=== PATIENT | female | born 1955 | race African-American/Black ===

== ENCOUNTER 2018-03-01 12:03 | Inpatient (IN) ==
--- NOTE | 2018-03-01 13:10 | Diag Imaging Result Doc PS360 ---
EXAM: CHEST-2 VIEWS 03/01/2018 HISTORY: SOB WHEEZING AND BLE EDEMA; SUSPECT NEW CHF TECHNIQUE: PA and lateral chest COMMENT: There is cardiomegaly. There is interstitial and alveolar opacity bilaterally consistent with pulmonary edema. There are no previous studies. IMPRESSION: Cardiomegaly and pulmonary edema. Electronically signed by Nirav Bradford 03/01/2018 1:07 PM
[2018-03-01 14:41] LABS: BASO# 0.01 X1000 (0.0-0.2); BASO% 0.1 % (0.0-0.8); EOS# 0.05 X1000 (0.0-0.7); EOS% 0.7 % (0.0-10.0); HEMATOCRIT 30.6 % (37.0-47.0); HEMOGLOBIN 8.6 g/dL (12.0-16.0); IMM GRAN# 0.05 X1000 (0.0-0.04); IMM GRAN% 0.7 % (0.0-0.5); LYMPH# 1.84 X1000 (1.2-3.4); LYMPH% 25.3 % (20.5-51.1); MCH 25.7 PG (27-31); MCHC 28.1 g/dL (33-37); MCV 91.3 FL (81-99); MONO# 0.71 X1000 (0.11-0.59); MONO% 9.8 % (1.7-9.3); MPV 10.4 FL (7.4-10.4); NEUT# 4.61 X1000 (1.4-6.5); NEUT% 63.4 % (42.2-75.2); PLT 352 X1000 (130-400); RBC 3.35 XMIL (4.2-5.4); RDW 15.3 % (11.5-14.5); WBC 7.27 X1000 (4.8-10.8)
[2018-03-01 15:02] LABS: AGAP 4; ALB/GLOB RATIO 1.4; ALKALINE PHOSPHATASE 67 U/L (32-104); BUN 17 mg/dL (8-22); CALCIUM 9.3 mg/dL (8.8-10.2); CHLORIDE 101 mmol/L (98-107); COSMO 287; CREATININE 0.6 mg/dL (0.5-0.9); ESTIMATED GFR > 60; GLUCOSE 108 mg/dL (70-104); GOT 85 U/L (10-30); GPT 190 U/L (10-36); MAGNESIUM 1.8 mg/dL (1.5-2.7); POTASSIUM 4.4 mmol/L (3.5-5.1); SODIUM 143 mmol/L (136-145); TCO2 38 mmol/L (25-35); TOTAL BILIRUBIN 0.38 mg/dL (0.20-1.00); TOTAL PROTEIN 6.8 g/dL (6.3-8.3)
[2018-03-01] MEDS ORDERED: LASIX IV ONE ×3 (15:15→21:00)
[2018-03-01 15:16] LABS: CK PROFILE 236 U/L (24-173)
--- NOTE | 2018-03-01 15:22 | PROVIDER DOCUMENTATION ---
This chart was entered by Nery Callaway Scribe, acting as scribe for Pee Tabor MD. HPI-Respiratory General - General Chief Complaint: Edema Stated Complaint: leg swelling Time Seen by Provider: 03/01/18 12:46 Source: patient Allergies/Adverse Reactions: Patient Allergies Allergy/AdvReac Type Severity Reaction Status Date / Time No Known Allergies Allergy Verified 03/01/18 12:40 Home Medications: Home Medication List Medication Instructions Recorded Confirmed Last Taken Type Metformin [Glucophage] 500 mg PO DAILY 03/01/18 03/01/18 03/01/18 History Naproxen 500 mg PO DAILY 03/01/18 03/01/18 02/28/18 History Nifedipine 10 mg PO DAILY 03/01/18 03/01/18 03/01/18 History Sitagliptin [Januvia] 50 mg PO DAILY 03/01/18 03/01/18 02/28/18 History - History of Present Illness-Resp Nature of Presenting Problem: Patient is a 63 year old female who presents to the ED via EMS with shortness of breath. Patient states shortness of breath has been present for 2 weeks. Patient does not report chest pain. Quality of Pain: reports: tightness Severity in ED: reports: mild Onset/Duration: reports: other (2 weeks) Timing: reports: still present, getting worse Cough Quality/Degree: reports: no cough Current Respiratory Medication Therapy: Initiated see nurses note Modifying Factors: improves with: exertion (worse), lying down (worse) Associated Symptoms: reports: shortness of breath Similar Symptoms Previously?: Yes (present for 2 weeks) Recently seen or treated by another doctor?: No Review of Systems - Adult - REVIEW OF SYSTEMS - ADULT Constitutional: reports: no symptoms reported Eyes: reports: no symptoms reported Ears, Nose, Mouth & Throat: reports: no symptoms reported Cardiovascular: reports: no symptoms reported Respiratory: reports: shortness of breath. denies: cough, wheezing Gastrointestinal: reports: no symptoms reported Genitourinary: reports: no symptoms reported Musculoskeletal: reports: no symptoms reported Integumentary: reports: no symptoms reported Neurological: reports: no symptoms reported Psychiatric: reports: no symptoms reported Endocrine: reports: no symptoms reported Hematologic/Lymphatic: reports: no symptoms reported Allergic/Immunologic: reports: no symptoms reported All Other Systems: Reviewed and Negative Past History - Adult - PAST MEDICAL HISTORY-ADULT Review of Records: reports: Nursing Assessment Review, Medications Reviewed, Social history reviewed & non-contributory. Major Childhood Illnesses: reports: denies history Cardiovascular: reports: HTN Respiratory: reports: denies history Gastrointestinal: reports: denies history Obstetrical/Gynecological: reports: denies history Genitourinary: reports: denies history Musculoskeletal: reports: denies history Neurological: reports: denies history Psychiatric: reports: denies history Endocrine/Immune: reports: Diabetes Other Conditions: reports: denies history - PRIOR SURGERIES/PROCEDURES Surgical/Procedure History: reports: reviewed, not pertinent, , hernia repair - IMMUNIZATION STATUS Childhood Immunizations: See Nurse Assessment Flu Vaccine: See Nurse Assessment - FAMILY HISTORY Family History: reviewed, not pertinent - SOCIAL HISTORY Smoking: denies Substance Use: denies Physical Exam-General - PHYSICAL EXAM-ADULT Initial Vital Signs Reviewed: Yes - CONSTITUTIONAL General Appearance: alert, no apparent distress - HEAD, EARS, NOSE, MOUTH & THROAT HENMT: normal ENT inspection - RESPIRATORY Respiratory: wheezing (bilateral cardiac wheezing), other (cardiac asthma) - MUSCULOSKELETAL Extremity: non-tender, other (2 + pitting edema to bilateral lower extremities) - SKIN Integumentary: normal color, normal turgor, warm/dry - NEUROLOGIC Neurologic: grossly normal, no motor/sensory deficits - PSYCHIATRIC Psych/Mental Status: normal mood/affect, oriented x 3 Progress - PLAN OF CARE/RESULTS Progress/Plan/Lab Results: Vital Signs - 8 hr 03/01/18 12:14 03/01/18 12:33 03/01/18 12:40 Temperature 98.7 F Pulse Rate 99 H 97 H 94 H Respiratory Rate 20 31 H 28 H Blood Pressure 180/118 153/96 O2 Sat by Pulse Oximetry 97 95 94 L 03/01/18 12:50 03/01/18 13:00 Temperature Pulse Rate 105 H 97 H Respiratory Rate 26 H 15 Blood Pressure O2 Sat by Pulse Oximetry 97 96 Laboratory Results - last 24 hr 03/01/18 03/01/18 03/01/18 14:26 14:26 14:26 WBC 7.27 RBC 3.35 L Hgb 8.6 L Hct 30.6 L MCV 91.3 MCH 25.7 L MCHC 28.1 L RDW Std Deviation 15.3 H Plt Count 352 MPV 10.4 Immature Gran % (Auto) 0.7 H Neut % (Auto) 63.4 Lymph % (Auto) 25.3 [place] % (Auto) 9.8 H Eos % (Auto) 0.7 Baso % (Auto) 0.1 Immature Gran # (Auto) 0.05 H Neut # (Auto) 4.61 Lymph # (Auto) 1.84 [place] # (Auto) 0.71 H Eos # (Auto) 0.05 Baso # (Auto) 0.01 PTT (Actin FS) Sodium 143 Potassium 4.4 Chloride 101 Carbon Dioxide 38 H Anion Gap 4 BUN 17 Creatinine 0.6 Estimated GFR/1.73 m2 > 60 BUN/Creatinine Ratio 28 Glucose 108 H Calculated Osmolality 287 Calcium 9.3 Magnesium 1.8 Total Bilirubin 0.38 AST 85 H ALT 190 H Alkaline Phosphatase 67 Creatine Kinase 236 H Troponin T [id number]-[id number] Pept 1482 H Total Protein 6.8 Albumin 4.0 Globulin 2.8 Albumin/Globulin Ratio 1.4 PTH Intact 03/01/18 03/01/18 03/01/18 14:26 14:26 14:26 WBC RBC Hgb Hct MCV MCH MCHC RDW Std Deviation Plt Count MPV Immature Gran % (Auto) Neut % (Auto) Lymph % (Auto) [place] % (Auto) Eos % (Auto) Baso % (Auto) Immature Gran # (Auto) Neut # (Auto) Lymph # (Auto) [place] # (Auto) Eos # (Auto) Baso # (Auto) PTT (Actin FS) 24.6 Sodium Potassium Chloride Carbon Dioxide Anion Gap BUN Creatinine Estimated GFR/1.73 m2 BUN/Creatinine Ratio Glucose Calculated Osmolality Calcium Magnesium Total Bilirubin AST ALT Alkaline Phosphatase Creatine Kinase Troponin T < 0.010 Lge-Z-Dzpcgcgkiet Pept Total Protein Albumin Globulin Albumin/Globulin Ratio PTH Intact 60 Orders Category Date Time Status cxr [CHEST-2 VIEWS] [RAD] Stat Exams 03/01/18 12:53 Completed CBC WITH ELECTRONIC DIFF [HEME] Stat Lab 03/01/18 14:26 Completed CK PROFILE [SP CHEM] Stat Lab 03/01/18 14:26 Results COMPREHENSIVE METABOLIC PANEL [CHEM] Stat Lab 03/01/18 14:26 Results MAGNESIUM [CHEM] Stat Lab 03/01/18 14:26 Results PRO B-NATRIURETIC PEPTIDE Stat Lab 03/01/18 14:26 Completed PTH INTACT [CHEM] Stat Lab 03/01/18 14:26 Completed PTT [COAG] Stat Lab 03/01/18 14:26 Completed TROPONIN T Stat Lab 03/01/18 14:26 Completed TSH Stat Lab 03/01/18 15:[address] W/POSS RFLX CULT [URINALYSIS] Stat Lab 03/01/18 12:53 Uncollected Furosemide [Lasix] Med 03/01/18 15:15 Discontinued 40 mg IV NOW ONE Furosemide [Lasix] Med 03/01/18 15:16 Discontinued 60 mg IV NOW ONE ECHO COMPL W/Contrast Definity Routine Ther 03/01/18 15:19 Ordered EKG [EKG] Stat Ther 03/01/18 12:54 Ordered Result Diagrams: 03/01/18 14:26 03/01/18 14:26 - REASSESSMENT Reassessment #1 Time Reassessed: 15:17 Status: other (NEW CHF; PENDING HOSPITALIST TO RETURN CALL.) Reassessment #2 Time Reassessed: 15:21 Status: other (APPRECIATE HOSPITALSIT ASSISTANC.E) - XRAY 1 XRAY Study: Chest Impression: See EMR Report ( EXAM: CHEST-2 VIEWS 03/01/2018 HISTORY: SOB WHEEZING AND BLE EDEMA; SUSPECT NEW CHF TECHNIQUE: PA and lateral chest COMMENT: There is cardiomegaly. There is interstitial and alveolar opacity bilaterally consistent with pulmonary edema. There are no previous studies. IMPRESSION: Cardiomegaly and pulmonary edema. Electronically signed by Nirav Bradford 03/01/2018 1:07 PM 03/01/18 [id number] Interpreting Physician: Nirav Bradford MD Dictated Date/Time: 03/01/18 1308 cc: Pee Tabor MD;) - CONSULTS/PCP/HOSPITALIST Notification #1 *Consult/PCP/Hospitalist*: KARLIE Daniels for Hospitalist Time Discussed: 15:18 Reason/Comments: Dr. Tabor consulted with Frances about patient. Consult Disposition: Will see in ED, Admit Departure - Departure Date of Disposition Decision: 03/01/18 Time of Disposition Decision: 15:21 DIAGNOSIS: CHF exacerbation Disposition: ADMITTED INPATIENT 09 Certified Medical Emergency: Emergent Condition: Stable Referrals and Follow-Ups: None,PCP [Primary Care Provider] - - Critical Care Note This patient required my direct & personal management of CC.: No Attestation - Physician/ KOSTAS Attestation Patient care was provided by Advanced Practice Provider:: No The physician spent face to face time with patient:: Yes Advanced Practice Provider documentation review:: Supervising physician onsite and consulted in the evaluation and care of this patient. The physician did have a face to face encounter with the patient. This chart was documented by the indicated scribe, (Nery Callaway Scribe) and accurately reflects the services I performed and decisions made by me, Pee Tabor MD, as attested by the provider's signature.
[2018-03-01 15:30] LABS: CK INDEX 2.6 (0.0-2.5); CK-MB 6.05 ng/mL (0.0-5.0)
[2018-03-01 16:12] LABS: URINE SOURCE CLEAN CATCH
[2018-03-01 16:34] LABS: BILIRUBIN URINE NEGATIVE (NEGATIVE); BLOOD URINE NEGATIVE (NEGATIVE); COLOR STRAW; GLUCOSE URINE NEGATIVE (NEGATIVE); KETONE URINE NEGATIVE (NEGATIVE); LEUKOCYTES URINE NEGATIVE (NEGATIVE); NITRITE URINE NEGATIVE (NEGATIVE); PH URINE 5.5; PROTEIN URINE NEGATIVE (NEGATIVE); SP GRAVITY URINE 1.004; TURBIDITY URINE CLEAR (CLEAR); UROBILINOGEN URINE NORMAL (NORMAL)
[2018-03-01 16:35] LABS: UR EPITHELIAL CELLS <10 /HPF (<10); URINE BACTERIA NEGATIVE /HPF; URINE RBC <10 /HPF (<10); URINE WBC <10 /HPF (<10)
[2018-03-01 20:56] LABS: AGAP 9; BUN 13 mg/dL (8-22); CHLORIDE 96 mmol/L (98-107); COSMO 293; CREATININE 0.6 mg/dL (0.5-0.9); ESTIMATED GFR > 60; GLUCOSE 170 mg/dL (70-104); MAGNESIUM 1.6 mg/dL (1.5-2.7); PHOSPHORUS 4.3 mg/dL (2.7-4.5); POTASSIUM 3.8 mmol/L (3.5-5.1); SODIUM 145 mmol/L (136-145); TCO2 40 mmol/L (25-35)
[2018-03-01 21:05] LABS: T4 4.75 ug/dL (4.60-12.00); TSH 1.43 uIUmL (0.27-4.20)
[2018-03-01 21:12] LABS: CK-MB 7.27 ng/mL (0.0-5.0)
[2018-03-01 22:27] LABS: URINE SOURCE CATH
[2018-03-01 22:53] LABS: BILIRUBIN URINE NEGATIVE (NEGATIVE); BLOOD URINE NEGATIVE (NEGATIVE); COLOR STRAW; GLUCOSE URINE NEGATIVE (NEGATIVE); KETONE URINE NEGATIVE (NEGATIVE); LEUKOCYTES URINE NEGATIVE (NEGATIVE); NITRITE URINE NEGATIVE (NEGATIVE); PROTEIN URINE NEGATIVE (NEGATIVE); TURBIDITY URINE CLEAR (CLEAR); UR EPITHELIAL CELLS <10 /HPF (<10); URINE BACTERIA NEGATIVE /HPF; URINE RBC <10 /HPF (<10); URINE WBC <10 /HPF (<10); UROBILINOGEN URINE NORMAL (NORMAL)
[2018-03-01] MEDS: COLACE PO SCH (23:25)
[2018-03-01] MEDS: LOPRESSOR PO SCH (23:32)
[2018-03-02 03:53] LABS: HEMOGLOBIN A1C 6.2 % (4.8-6.0)
[2018-03-02 04:18] LABS: ALB/GLOB RATIO 1.5; ALBUMIN 4.1 g/dL (3.5-5.0); DIRECT BILIRUBIN 0.1 mg/dL (0.00-0.20); TOTAL BILIRUBIN 0.41 mg/dL (0.20-1.00); TOTAL PROTEIN 6.9 g/dL (6.3-8.3)
[2018-03-02 04:28] LABS: FERRITIN 17 ng/mL (13-150)
[2018-03-02 04:41] LABS: CK INDEX 3.5 (0.0-2.5); CK-MB 6.9 ng/mL (0.0-5.0)
--- NOTE | 2018-03-02 05:18 | HISTORY AND PHYSICAL ---
PRIMARY CARE PHYSICIAN: None. CHIEF COMPLAINT: Bilateral lower extremity edema and shortness of breath. HISTORY OF PRESENT ILLNESS: Ms. Rae is a pleasant 63-year-old female who carries a past medical history of essential hypertension, diabetes mellitus type 2, hyperlipidemia, occasional constipation, morbid obesity, and gastric ulcers secondary to NSAID use. She states for the past 2 weeks she has had increasing shortness of breath. She can only walk a few feet before she has to stop to rest to catch her breath. She only sleeps on 1 pillow at night. She noticed her legs started swelling this morning and having increased shortness of breath. She does take naproxen 1 to 2 times per week for joint pain. She stopped drinking sodas 6 months ago. She does the eat canned tuna and sardines in can but adds no extra salt to her food. She denies any abdominal fullness. She has noted a dry cough that is nonproductive, but sometimes she is able to get up some white frothy sputum. She denies any chest pain, palpitations, headache, fever, chills, nausea, vomiting, diarrhea. She did state when she got up to use the bathroom with the assistance of her that she felt dizzy. Her O2 saturations dropped into the 80s. She was placed back in the bed. It did take her a few minutes for her O2 to come back up into the 90s, so she will be admitted for acute CHF exacerbation and placed on CIC with a Mckeon. She was given a one-time dose of Lasix 60 mg in the ED. Chest x-ray showed cardiomegaly and pulmonary edema. PAST MEDICAL HISTORY: 1. Hypertension. 2. Diabetes mellitus type 2, orally controlled. 3. Hyperlipidemia. 4. Constipation occasionally. 5. Morbid obesity. 6. Gastric ulcer secondary to NSAID use. SURGICAL HISTORY: 1. Two C sections. 2. Hernia repair. 3. Hysterectomy. 4. Right ankle. FAMILY HISTORY: No coronary artery disease. She had a mother with rectal cancer, still living and in remission. Father from diabetes mellitus at the age of 63. SOCIAL HISTORY: Originally from [place]. They reside here in [place] with her . She does have 2 children. One daughter is an REVIEW ASSISTANT in [place]. Denies any alcohol, tobacco, or illicit drug use. ALLERGIES: No known drug allergies. HOME MEDICATIONS: 1. Metformin 500 mg p.o. daily. 2. Naproxen 500 mg p.o. daily p.r.n. per patient. 3. Nifedipine 10 mg p.o. daily. 4. Januvia 50 mg p.o. daily. PHYSICAL EXAM: VITAL SIGNS: Temperature is 98.7 degrees, heart rate 96, respirations 23, blood pressure 170/118, and O2 saturation anywhere from 88 to 97 percent on 2 L nasal cannula. GENERAL: Ms. Rae is a pleasant 63-year-old female who is sitting up on the stretcher. She just returned to the bed from using the restroom. She is short of breath but in no acute distress. HEENT: Atraumatic, normocephalic. APRIL. NECK: Supple. Trachea midline. CV: S1, S2 appreciated. No murmurs, gallops, or rubs noted. No JVD. RESPIRATORY: Lung sounds diminished bilaterally secondary to body habitus. I did not appreciate any rales, rhonchi, or wheezes. GI: Obese, soft, nontender, nondistended. Positive bowel sounds 4 quadrants. Bilateral lower extremity 2 to 3+ pitting edema just above the ankles. SKIN: Warm, dry and intact. EXTREMITIES: No clubbing or cyanosis noted. NEURO: Patient is alert and oriented x4. Follows commands. Moves all extremities. No focal deficits noted. DIAGNOSTIC DATA: Chest x-ray cardiomegaly and pulmonary edema. Echocardiogram pending. LABORATORY DATA: White count 7, hemoglobin 8 and 30, platelet count is 352,000. Sodium 143, potassium 4.4, BUN 17, creatinine 0.6. Blood glucose is 108. AST 85, ALT 190. CK 236, CK 2.6, CK-MB 6.05. Troponin less than 0.010. ProBNP was 14 82. Urinalysis was negative. ASSESSMENT AND PLAN: 1. Acute congestive heart failure exacerbation. Chest x-ray shows pulmonary edema and cardiomegaly. The patient states she has never been diagnosed with congestive heart failure. We will admit her to CIC. Continue with diuresis. Will initiate her on metoprolol low dose b.i.d. Strict I's and O's, daily weights. Check an echocardiogram. Consult Cardiology. Recheck a proBNP in the a.m. Continue to trend her cardiac enzymes. Recheck a chest x-ray in the a.m. 2. Transaminitis. We will check a right upper quadrant ultrasound in the a.m. Check her hepatic function in the a.m. as well as a hepatitis profile, possibly due to congestion from her heart failure exacerbation. We will continue to monitor. 3. Anemia. Unsure if it is from chronic disease. We will do an anemia workup. 4. Diabetes mellitus type 2. Will place her on sliding scale and pattern blood sugars. Check a hemoglobin A1c in the a.m. 5. Morbid obesity. We will need to educate the patient on diet and exercise. She does eat a lot of canned foods, however, she does not add any extra salt and she quit drinking soda 6 months ago. Will do a dietary consult. 6. Gastric ulcer history secondary to NSAID use. We did educate her that naproxen is an NSAID as well as not using it with her heart failure. 7. Occasional constipation. We will go ahead and start her on a stool softener seeing as how we are going to be giving her diuretics. 8. Further recommendation to follow physician evaluation, laboratory and diagnostic data. Dictated by KARLIE Murcia for Edwin Blancas MD cc: Edwin Blancas MD
[2018-03-02] MEDS: LASIX IV SCH ×3 (06:00→20:06)
--- NOTE | 2018-03-02 07:22 | Diag Imaging Result Doc PS360 ---
EXAM: CHEST-PORTABLE 03/02/2018 HISTORY: follow up CHF TECHNIQUE: AP portable upright at 0557 COMMENT: There is cardiomegaly. There is increased pulmonary vascularity. There is apparent interstitial pulmonary edema. Despite the less optimal inspiration this has probably improved somewhat since 03/01/2018. IMPRESSION: Improved pulmonary edema. Electronically signed by Nirav Bradford 03/02/2018 7:20 AM
--- NOTE | 2018-03-02 08:05 | EKG Report ---
Test Performed on : 03/02/2018 07:06:22 AM Test Reason : Heart Failure Admission Blood Pressure : / mmHG Vent. Rate : 077 BPM Atrial Rate : 077 BPM P-R Int : 146 ms QRS Dur : 096 ms QT Int : 426 ms P-R-T Axes : 062 054 100 degrees QTc Int : 482 ms Normal sinus rhythm. Nonspecific T wave abnormality Prolonged QT Abnormal ECG No previous ECGs available Confirmed by Ysamin OLIVO, David Neil ([id number]) on 03/04/2018 10:15:32 AM
[2018-03-02] MEDS: COLACE PO SCH ×2 (09:30→20:06)
[2018-03-02] MEDS: LOPRESSOR PO SCH ×2 (09:30→20:05)
--- NOTE | 2018-03-02 09:41 | Diag Imaging Result Doc PS360 ---
EXAM: US GB < RUQ (LIMITED) 03/02/2018 HISTORY: elevated LFT TECHNIQUE: Right upper quadrant ultrasound COMMENT: The visualized portions of the aorta and inferior vena cava are within normal limits. There is antegrade flow in the portal vein. The common bile duct is not distended measuring less than 3 mm. The gallbladder is not distended and the patient is not nothing by mouth. The liver is somewhat heterogeneous and hyperechoic in appearance. There is a 5.2 cm cyst in the upper pole the right kidney. There is no evidence of hydronephrosis. There are no previous studies. The pancreas is not well demonstrated. IMPRESSION: Hepatic steatosis versus cirrhosis. Right renal cyst. Contracted gallbladder. Electronically signed by Nirav Bradford 03/02/2018 9:39 AM
--- NOTE | 2018-03-02 14:37 | PROGRESS NOTE ---
DATE: 03/02/2018 SUBJECTIVE: Patient resting in bed. Not in any obvious distress. OBJECTIVE: Vital Signs: Pulse is 77, respirations 20, blood pressure 135/84, oxygen saturation is 91%. HEENT: Atraumatic, normocephalic. Cardiovascular: S1, S2. Respiratory: Has evidence of good air entry bilaterally. Abdomen: Soft, nontender. No masses felt. Extremities: No significant edema. Central Nervous System: No obvious focal deficits noted. LABS: WBC 7.27, hematocrit 30.6, Sodium 145 potassium 3.8, chloride is 96, bicarb 40, BUN is 13, creatinine 0.6. AST of 76, ALT 194. Serum iron is 12. ASSESSMENT AND PLAN: 1. Acute congestive heart failure. Monitor intakes and outputs, as well as daily weights. Continue diuretics. Follow up on 2D echo to assess ejection fraction. 2. Abnormal liver function test. Check a hepatitis panel, MILY level, ferritin level, as well as an abdominal ultrasound. 3. Anemia secondary to iron deficiency. Begin iron replacement. 4. Diabetes mellitus. Monitor the patient's blood sugar level and maintain patient on sliding scale insulin. 5. Peptic ulcer disease. Maintain patient on PPI. 6. DVT prophylaxis. Lovenox. 7. GI prophylaxis. PPI. cc: Edwin Blancas MD MTDD
--- NOTE | 2018-03-02 15:16 | CARDIOLOGY CONSULTATION ---
DATE: 03/02/2018 HISTORY: A 63-year-old Afro-Ivorian lady was seen today who is admitted with shortness of breath and congestive heart failure. She has history of diabetes and hypertension. For the last 5 to 6 months, she has noticed increasing shortness of breath and also occasional episodes of chest tightness. She relocated from [place] to [place] in the last 2-3 months and, prior to that, she was from [place]. Patient here has noticed increasing shortness of breath. It was orthopneic associated with increasing pedal edema and some heaviness in the chest. There is no history of any fevers, chills. There is no history of any hemoptysis, however, she has had some dry cough. When she came to the emergency room, she was orthopneic. She was in congestive heart failure. She was given Lasix and symptomatically today she has improved. REVIEW OF SYSTEM: A 14-point review of systems was obtained.Gastrointestinal System: There is no history of nausea, vomiting, diarrhea. There is no history of hematemesis or melena. Central Nervous System: No focal weakness to suggest a CVA or TIA. Genitourinary: There is no dysuria or hematuria. PAST MEDICAL HISTORY: 1. Hypertension. 2. Diabetes. 3. Hyperlipidemia. 4. Obesity. 5. History of gastric ulcers in the past. 6. Two sections. 7. Hernia repair. 8. Hysterectomy. 9. Right ankle surgery. HOME MEDICATIONS: 1. Metformin. 2. Naprosyn. 3. Nifedipine 10. 4. Januvia. 5. She also has arthritis. FAMILY HISTORY: No family history of coronary artery disease. Patient does not smoke. Does not drink. PHYSICAL EXAMINATION: Vital Signs: Blood pressure when she came in was 170/118; currently, blood pressure is 135/84. Cardiovascular System: First and second heart sounds were heard. There was no S3 gallop. Respiratory System: Decreased breath sounds with scattered inspiratory crepitations. Abdomen: Obese, soft, nontender. There was no guarding or rigidity. Bowel sounds were heard. Central Nervous System: Alert and was moving all 4 extremities. Extremities: Examination of extremities revealed pitting edema. ASSESSMENT AND PLAN: Ms. Charlotte Rae is a 63-year-old, Afro-Ivorian lady with history of hypertension, diabetes, history of gastric ulcers in the past secondary to NSAIDs, comes with complaints of having increasing episodes of shortness of breath and some chest discomfort for the last 6 to 7 months. Of late, since she has moved to [place], her shortness of breath has worsened. She was orthopneic and came to the emergency room and was admitted. She was ruled out for myocardial infarction by cardiac enzymes. LABORATORY EXAMINATION: She has mild elevations of CK, however, her troponin levels were normal. Sodium was 145, potassium 3.8. BUN 13, creatinine 0.6. ProBNP was elevated at 1482. Chest x-ray suggestive of pulmonary edema. Hemoglobin 8.6, hematocrit 30.6, platelet count of 352. IMPRESSION: 1. Patient is in heart failure. Echocardiogram was done. Please see detailed echocardiogram report. Patient has diastolic heart failure. We will continue with Lasix 40 mg IV twice daily. 2. She is a diabetic as well. She was on nifedipine. We will discontinue the nifedipine and add Cozaar 50 mg to her medications. 3. As far as symptoms of heart failure and chest discomfort are concerned, this is multifactorial. Again, she may well have coronary artery disease. We will set up to undergo a Lexiscan Cardiolite stress test. We will put her on aspirin 81 mg a day in addition to beta blockers. 4. She has had gastric ulcers in the past. Hemoglobin and hematocrit is reduced. We will get a stool occult blood done as well as check her hemoglobin again. She does not have any obvious history of GI bleed 5. Diabetes. Continue with the medications. Thank for the consult. We will follow hospital course. cc: Remington Gonsalves MD
[2018-03-02] MEDS: ASPIRIN PO SCH (16:45)
[2018-03-02] MEDS: PROTONIX IV SCH (16:45)
--- NOTE | 2018-03-02 23:46 | ECHO REPORT ---
ORDER DATE: 03/01/2018 MEASUREMENTS: Left ventricular end-diastolic diameter 4.5, end systolic diameter 2.7, septal thickness 1.5, posterior wall thickness 1.4, aortic root 3.4, left atrium 3.9. SUMMARY: 1. Adequate quality study. Intravenous echo contrast agent Definity was utilized to enhance endocardial definition. 2. Aortic valve is trileaflet and opens normally on 2-dimensional images. Peak gradient across the aortic valve is 15 mmHg. Mitral, tricuspid, and pulmonic valves are without evidence of structural abnormality with trace mitral regurgitation, mild to moderate tricuspid regurgitation, and trace pulmonic insufficiency. The estimated systolic PA pressure by Doppler is 60 mmHg, suggesting moderate pulmonary hypertension. Aortic root is normal size. 3. Normal left ventricular chamber size with moderate concentric left hypertrophy is demonstrated. Estimated left ventricular ejection fraction appears to be at least 65%. No regional wall motion abnormalities are evident. The left atrium is mildly enlarged. The right atrium is mildly enlarged. The right ventricle is normal in size with grossly preserved right ventricular systolic function. 4. No pericardial effusion. 5. Inferior vena cava not well demonstrated. CONCLUSIONS: 1. Mild to moderate tricuspid regurgitation with moderate pulmonary hypertension by Doppler. 2. Moderate concentric left ventricular hypertrophy with estimated left ventricular ejection fraction 65%. 3. Mild biatrial enlargement. cc: MD Mimi Parada CRNP
[2018-03-03 07:32] LABS: BASO# 0.01 X1000 (0.0-0.2); BASO% 0.1 % (0.0-0.8); EOS# 0.14 X1000 (0.0-0.7); HEMATOCRIT 30.6 % (37.0-47.0); HEMOGLOBIN 8.6 g/dL (12.0-16.0); LYMPH% 19.8 % (20.5-51.1); MCH 26.1 PG (27-31); MCHC 28.1 g/dL (33-37); MONO# 0.56 X1000 (0.11-0.59); MONO% 7.9 % (1.7-9.3); MPV 9.9 FL (7.4-10.4); NEUT# 4.97 X1000 (1.4-6.5); NEUT% 70.2 % (42.2-75.2); PLT 300 X1000 (130-400); RBC 3.29 XMIL (4.2-5.4); RDW 15.4 % (11.5-14.5); WBC 7.08 X1000 (4.8-10.8)
--- NOTE | 2018-03-03 07:32 | Diag Imaging Result Doc PS360 ---
CHEST-1 VIEW - 03/03/2018 INDICATION: chf COMPARISON: 03/02/2018 FINDINGS: Stable cardiomegaly and pulmonary vascular congestion. Stable mild interstitial pulmonary edema. No pneumothorax or large pleural effusion. IMPRESSION: No change from prior. Electronically signed by Erik Santillan 03/03/2018 7:30 AM
[2018-03-03 07:43] LABS: ESTIMATED GFR > 60
[2018-03-03 07:46] LABS: POTASSIUM 3.7 mmol/L (3.5-5.1); SODIUM 146 mmol/L (136-145)
[2018-03-03 07:47] LABS: AGAP 4; ALB/GLOB RATIO 1.3; ALBUMIN 3.6 g/dL (3.5-5.0); ALKALINE PHOSPHATASE 63 U/L (32-104); BUN 18 mg/dL (8-22); CALCIUM 8.4 mg/dL (8.8-10.2); CHLORIDE 95 mmol/L (98-107); COSMO 294; CREATININE 0.7 mg/dL (0.5-0.9); GLUCOSE 123 mg/dL (70-104); GOT 50 U/L (10-30); GPT 152 U/L (10-36); MAGNESIUM 1.6 mg/dL (1.5-2.7); TCO2 47 mmol/L (25-35); TOTAL BILIRUBIN 0.49 mg/dL (0.20-1.00); TOTAL PROTEIN 6.4 g/dL (6.3-8.3)
[2018-03-03] MEDS: COZAAR PO SCH (09:18)
[2018-03-03] MEDS: LOVENOX SUBQ SCH (09:19)
[2018-03-03] MEDS: LOPRESSOR PO SCH ×2 (09:19→21:39)
[2018-03-03] MEDS: COLACE PO SCH ×2 (09:19→21:39)
[2018-03-03] MEDS: ASPIRIN PO SCH (09:19)
[2018-03-03] MEDS: LASIX IV SCH ×2 (09:19→21:39)
[2018-03-03 10:19] LABS: HEPATITIS PROFILE ACUTE SEE COMMENTS
[2018-03-03] MEDS ORDERED: LEXISCAN ONE (14:04)
--- NOTE | 2018-03-03 14:33 | PROGRESS NOTE ---
DATE: 03/03/2018 SUBJECTIVE: The patient is awake, not in any obvious distress. OBJECTIVE: Vital signs are as follows: Temperature 98.4, pulse 89, respiratory 16, blood pressure 130/82, Oxygen saturation is 98%. HEENT: Atraumatic, normocephalic. Cardiovascular: S1, S2. Respiratory System has evidence of good air entry bilaterally. Abdomen soft, nontender. No masses felt. Extremities: No evidence of edema in the lower extremities. Central Nervous System: No obvious focal deficit noted. LABORATORY DATA: WBC is 7.08, hematocrit is 30.6 with a platelet count of 300, 000. Sodium is 146, potassium 3.7, chloride is 95, bicarb is 47. BUN is 18, creatinine 0.7. AST is 50. Abdominal ultrasound shows hepatic steatosis versus cirrhosis as well as right renal disease and contracted gallbladder. Hepatitis panel negative. MILY level negative. ASSESSMENT AND PLAN: 1. Acute congestive heart failure. Continue diuretics. Monitor intakes and outputs, as well as, daily weights. 2D echo report reviewed and showed moderate concentric left ventricular hypertrophy with estimated ejection fraction of about 65%. 2 Abnormal liver function tests. Abdominal ultrasound shows hepatic steatosis versus cirrhosis. There is also mention of right renal cyst and also contracted gallbladder. Hepatitis panel was negative. MILY level is also negative. To further evaluate for gallbladder disease, we will check a HIDA scan. 3. Iron deficiency anemia. Continue iron replacement. 4. Diabetes mellitus. Continue blood sugar monitoring as well as sliding scale insulin. 5. Peptic ulcer disease. Maintain patient on proton pump inhibitor. 6. Deep vein thrombosis prophylaxis; Lovenox. 7. Gastrointestinal prophylaxis, proton pump inhibitor. cc: Edwin Blancas MD [facility]
--- NOTE | 2018-03-03 16:01 | Diag Imaging Result Doc PS360 ---
EXAM: CT HEAD W/O CONTRAST - 03/03/2018 HISTORY: r/o cva TECHNIQUE: CT head without contrast COMPARISON: None. FINDINGS: There are mild chronic appearing microvascular ischemic changes. There is no indication of recent infarct, although acute infarcts may not be immediately visible. There is no evidence of intracranial hemorrhage, mass effect, midline shift, or hydrocephalus. There is a nonspecific 0.5 cm meningeal calcification versus tiny meningioma noted at the left anterior frontal region. Visualized portions of paranasal sinuses and mastoid air cells appear essentially clear. IMPRESSION: No visible acute intracranial abnormality. No hemorrhage or mass effect. This exam was performed using automated exposure control, adjustment of mA or kV according to patient size, and/or use of iterative reconstruction technique. Electronically signed by Capo Vicente 03/03/2018 3:58 PM
[2018-03-03] MEDS: PROTONIX IV SCH (16:20)
[2018-03-03] MEDS: SODIUM CHLORIDE 0.9% INJ SCH (16:20)
--- NOTE | 2018-03-03 17:17 | Diag Imaging Result Document ---
PROCEDURE NAME: MYOCARDIAL PERF SCAN, STR/REST - 03/03/2018 STUDY PERFORMED: Lexiscan Cardiolite stress test. DESCRIPTION OF PROCEDURE: Lexiscan Cardiolite stress test Lexiscan was infused per standard protocol. There was no chest pain. Stress electrocardiogram was negative for ischemia. Following Lexiscan infusion, Cardiolite was injected. Gated SPECT images were obtained in standard views, and 15.7 mCi of Cardiolite was injected for the rest phase, 46.9 mCi of Cardiolite was injected for the stress phase. Images revealed significant diaphragmatic and chest wall attenuation. Normal left ventricular cavity size. There is low-grade fixed defect in the base of the inferoapical wall with normal wall motion and significant chest wall attenuation. This is likely to represent attenuation defect. Low probability of scar. Left ventricular ejection fraction by gated SPECT was 78%. CONCLUSIONS: 1. No chest pain. 2. Negative Lexiscan stress electrocardiogram. 3. Myocardial perfusion images revealed no evidence of ischemia. There is low-grade fixed defect in the inferoapical wall with significant chest wall and diaphragmatic attenuation. This is likely to represent attenuation defect. Low probability of scar. 4. Left ventricular ejection fraction 78%. cc: MD Mónica Mccormick PA
[2018-03-03] MEDS: ICAR-C PO SCH (21:40)
[2018-03-04] MEDS: COZAAR PO SCH (09:46)
[2018-03-04] MEDS: LASIX IV SCH ×2 (09:46→20:26)
[2018-03-04] MEDS: COLACE PO SCH ×2 (09:46→20:26)
[2018-03-04] MEDS: ICAR-C PO SCH ×2 (09:46→20:26)
[2018-03-04] MEDS: ASPIRIN PO SCH (09:46)
[2018-03-04] MEDS: LOPRESSOR PO SCH ×2 (09:46→20:26)
[2018-03-04] MEDS: LOVENOX SUBQ SCH (09:47)
[2018-03-04] MEDS: PROTONIX IV SCH (14:01)
[2018-03-04] MEDS: SODIUM CHLORIDE 0.9% INJ SCH (14:01)
[2018-03-04 15:39] LABS: ALLEN TEST YES; BE 31.5 mmoll (-3.0-3.0); BLOOD TYPE ARTERIAL; HCO3-(ACT) 49.4 mmoll (20.0-26.0); METHB 0.6 % (0.0-1.5); O2(CT) 13.8 mL/dL (15.0-23.0); O2HB 92.7 % (95.0-99.0); PO2(98.6) 77 mmHg (60-100); SAMPLE BLOOD; SAO2 95.2 % (95.0-100.0); THB 10.5 g/dL (11.5-17.4); pH(98.6) 7.28 (7.35-7.45)
[2018-03-04 15:43] LABS: PCO2(98.6) 137 mmHg (35-45)
[2018-03-04 15:44] LABS: MODALITY CANNULA
[2018-03-04] MEDS: VENOFER 200 MG in NS 100 ML IV SCH (16:08)
--- NOTE | 2018-03-04 17:47 | PROGRESS NOTE ---
DATE: 03/04/2018 SUBJECTIVE: Today I saw Ms. Rae by her bedside. Her was there and I was also able to talk to her daughter who is a nurse in [facility]. Today Ms. Rae refers to be feeling a lot better. She is glad that all her swelling in her lower extremities is all gone. OBJECTIVE: Vitals: Blood pressure is 180/95, pulse 97, respiration is 18, temperature 96.5 degrees, patient was saturating 100% on nasal cannula. General: Ms. Rae is a 63-year-old female she is in bed no distress. Mucosa is pink and moist. Anicteric. Acyanotic. Neck: Supple. No JVD. Chest: Air entry is bilaterally reduced but there was no crepitations. Cardiovascular: Regular rate and rhythm. No murmurs, no rubs, no gallops. Abdomen: Was soft, distended but nontender. There is an old infraumbilical surgical scar. Extremities: No pedal edema. EMERGENCY CARE ATTENDANT: Patient is lethargic, she would open her eyes to voice and to command but then she would go right back to sleep. LABORATORY DATA: None for today. Review of CT scan of the head done yesterday showed no visible intracranial pathology, myocardial perfusion scan for most part was negative with an ejection fraction of 78%. A chest x-ray did show stable cardiomegaly and pulmonary vascular congestion. An ultrasound of the abdomen showed hepatic steatosis versus cirrhosis. An echocardiogram did show ejection fraction of 65% with moderate concentric left ventricle hypertrophy. There was also pulmonary systolic pressure of 60 suggesting moderate pulmonary hypertension. Hepatitis panel is negative. ASSESSMENT: 1. Hypoxemic respiratory failure on presentation secondary to pulmonary edema. 2. Congestive heart failure with preserved ejection fraction. 3. Concentric left ventricular hypertrophy secondary to hypertensive heart disease. 4. Morbid obesity with body mass index 47.7 with suspicion of obstructive sleep apnea. 5. Moderate pulmonary hypertension likely due to underlying left heart disease as well as possible obstructive sleep apnea. 6. Iron deficiency anemia. Will start to replace this with IV iron. 7. Lethargy. Patient is currently not on any medication that has potential to cause this. After speaking with the daughter she made me to understand that Ms. Rae has this problem where most part of the day she is just in and out of sleep, she snores hard, she toss and turns at night all symptoms suggestive of obstructive sleep apnea. I did notify her that she will need to be followed up on outpatient base with the sleep team for an adequate diagnosis. For today we are going to do an ABG and then we will also put her on CPAP machine at night. 8. Transaminitis. I think this is likely due to underlying steatohepatitis. Ultrasound of the liver is showing hepatic steatosis versus cirrhosis. cc: Dev Heller MD
--- NOTE | 2018-03-04 23:56 | CARDIOLOGY PROGRESS NOTE ---
DATE: 03/04/2018 SUBJECTIVE: Ms. Rae reports she is doing better today. Her breathing has improved. PHYSICAL EXAMINATION: Vital signs: The patient is afebrile. Heart rate 97. Most recent blood pressure 118/95, but most of her blood pressures appear to be in the 120s to 130s systolic. Her I's and O's appear to be negative over the course of the hospitalization. However, very poor intake is recorded. General: She is in no acute distress. Cardiovascular: She sounds to be in a regular rate and rhythm. She has no murmurs. She has no S3. She has no lower extremity edema. Chest: Sounds clear with poor inspiratory effort. Abdomen: Soft, nontender. PERTINENT DATA: BUN 18 and creatinine 0.7. Those were checked yesterday. Really no laboratories today. She did have a head CT yesterday that shows no evidence of acute abnormality. ASSESSMENT: Ms. Rae is a 63-year-old female with diastolic heart failure. PLAN: She appears to have diuresed, and her blood pressure seems to be better. I will check a proBNP to reevaluate her. She had myocardial perfusion imaging on the that shows really no evidence of ischemia and a low-grade fixed defect suggestive of attenuation. Ejection fraction on that study 78%. I have no acute recommendations presently. Please contact us if we can be of further assistance. cc: Luis Antonio Lo MD
[2018-03-05 05:57] LABS: BLOOD TYPE ARTERIAL; SAMPLE BLOOD; pH(98.6) 7.45 (7.35-7.45)
[2018-03-05 05:58] LABS: HCO3-(ACT) 53.3 mmoll (20.0-26.0); PO2(98.6) 86 mmHg (60-100)
[2018-03-05 05:59] LABS: ALLEN TEST YES; MODALITY BI PAP
[2018-03-05 06:02] LABS: PCO2(98.6) 75 mmHg (35-45)
[2018-03-05 07:41] LABS: ESTIMATED GFR > 60
[2018-03-05 07:45] LABS: AGAP 12; BUN 17 mg/dL (8-22); CALCIUM 8.7 mg/dL (8.8-10.2); CHLORIDE 92 mmol/L (98-107); COSMO 292; CREATININE 0.7 mg/dL (0.5-0.9); GLUCOSE 94 mg/dL (70-104); POTASSIUM 3.8 mmol/L (3.5-5.1); SODIUM 146 mmol/L (136-145); TCO2 42 mmol/L (25-35)
[2018-03-05] MEDS: LASIX IV SCH (08:54)
[2018-03-05] MEDS: COZAAR PO SCH (08:55)
[2018-03-05] MEDS: LOVENOX SUBQ SCH (08:55)
[2018-03-05] MEDS: VENOFER 200 MG in NS 100 ML IV SCH (08:55)
[2018-03-05] MEDS: ICAR-C PO SCH ×2 (08:56→21:35)
[2018-03-05] MEDS: LOPRESSOR PO SCH ×2 (08:56→21:34)
[2018-03-05] MEDS: ASPIRIN PO SCH (08:56)
[2018-03-05] MEDS: COLACE PO SCH ×2 (08:56→21:34)
[2018-03-05 09:03] LABS: BASO# 0.01 X1000 (0.0-0.2); BASO% 0.1 % (0.0-0.8); EOS# 0.17 X1000 (0.0-0.7); EOS% 2.5 % (0.0-10.0); HEMATOCRIT 33.6 % (37.0-47.0); HEMOGLOBIN 9.4 g/dL (12.0-16.0); LYMPH# 1.63 X1000 (1.2-3.4); LYMPH% 23.9 % (20.5-51.1); MCH 25.4 PG (27-31); MCV 90.8 FL (81-99); MONO% 8.8 % (1.7-9.3); NEUT% 64.7 % (42.2-75.2); PLT 321 X1000 (130-400); RDW 15.8 % (11.5-14.5); WBC 6.81 X1000 (4.8-10.8)
--- NOTE | 2018-03-05 15:01 | PROGRESS NOTE ---
DATE: 03/05/2018 Today Ms. Rae refers to be doing a lot better. She was more alert and more responsive. OBJECTIVE: Vitals: Blood pressure is 105/59, pulse is 91, respiration is 12, temperature 97.2 degrees, patient was saturating 99% on the BiPAP . General: Ms. Rae 63- year-old female she was in bed, she was not in any distress. Mucosa is pink and moist. Anicteric. Acyanotic. Neck: Supple. No JVD. Respiratory: Air entry was bilaterally reduced. No crepitations, no rhonchi. Cardiovascular: Regular rate and rhythm. No murmurs, no rubs, no gallops. Abdomen: Soft, nontender, bowel sounds present. There is an old infraumbilical surgical scar. Extremities: No pedal edema. Distal pulses present. STUDIO TECHNICIAN VIDEO OPERATOR: Patient is more alert, conversational today, follows basic commands. LABORATORY DATA: WBC is 6.81, hemoglobin is 9.4, platelet count of 231,000. Chemistry is also reviewed, sodium is 146, potassium is 3.8, chloride 92, bicarb is 42, pro B is 432. ABG this morning pH is 7.45, pCO2 is 75, PO2 is 85. ASSESSMENT: 1. Acute hypoxemic respiratory failure on presentation secondary to pulmonary edema improved. 2. Acute on chronic congestive heart failure with preserved ejection fraction. 3. Concentric left ventricular hypertrophy secondary to hypertensive heart disease. Will continue controlling the blood pressure. 4. Pulmonary hypertension noted on echocardiogram. 5. Altered mental status secondary to CO2 narcosis improved with BiPAP therapy. 6. Acute on chronic hypercarbic respiratory failure. 7. Suspected obstructive sleep apnea and obesity hypoventilation syndrome. Pulmonary Medicine has been consulted. 8. Iron deficiency anemia, patient is getting replacement with iron infusions. 9. Transaminitis likely due to congestive hepatopathy on baseline steatohepatitis. So in general I think Ms. Rae is a whole lot better today, mentation has significantly improved, congestive symptoms have also improved. I have decreased her Lasix to only 1 time per day. We are going to continue with the iron replacement therapy, continue with the BiPAP especially when she is going to sleep, encourage her to move around and get her to sit up in chair at least twice per day. Will discontinue the Mckeon catheter today. Hopefully will be able to discharge Ms. Rae home tomorrow. She definitely needs to follow up with Pulmonary Medicine for sleep studies. cc: Dev Heller MD MTDD
[2018-03-05] MEDS: PROTONIX IV SCH (15:02)
[2018-03-05] MEDS: SODIUM CHLORIDE 0.9% INJ SCH (15:02)
[2018-03-05] MEDS ORDERED: MIRALAX PO PRN (15:11)
--- NOTE | 2018-03-05 20:58 | CONSULTATION ---
DATE OF CONSULTATION: 03/05/2018 REQUESTING PROVIDER: Dev Heller MD. REASON FOR CONSULTATION: Obstructive sleep apnea, obesity hypoventilation syndrome. HISTORY OF PRESENT ILLNESS: This is a 63-year-old female with a medical history of hypertension, diabetes, hyperlipidemia, morbid obesity, and recent gastric ulcers. She has been admitted with acute hypoxemic respiratory failure and congestive heart failure exacerbation since 03/01/2018. ABG on 03/05/2018 revealed the patient has a hypocapnic respiratory failure, too , which is likely chronic due to undiagnosed obesity hypoventilation syndrome or obstructive sleep apnea. At the time of my examination, the patient has noticed shortness of breath. She reports she has shortness breath for a long time. It is getting worse in the last 2 weeks. Before that she felt shortness of breath simply crossing the street. Right now, she few shortness of breath by walking only 2 to 3 steps. She reports prior leg swelling which is resolved now. She reports frequent chest pain as walking, and she had been taking naproxen for it. Till two weeks ago, she found some blood in her stool and urine, and her doctor asked her to stop taking that. She denies cough, wheezing, or palpitation. The patient also reports that she has been diagnosed with hypertension for a long time, and she has been taking medicine for it until last December after her doctor told her that her blood pressure was under control. From that time on, she only took blood pressure medicine when she felt she needed it. At that time she also diagnosed with diabetes. Her blood pressure in the ER was 180/118. Patient's reports patient has occasionally loud snoring during sleeping with gasping for air at times. Patient stated she is always so tired and sleepy that she can sleep a long time. She awakens with a dry mouth at times, but no insomnia or morning headache. She reports she feels constipated at this time, but no abdominal pain or nausea. PAST MEDICAL HISTORY: 1. Hypertension which is likely uncontrolled since last January. 2. Diabetes mellitus type 2, diagnosed last December 3. Hyperlipidemia. 4. Morbid obesity. Current BMI 46.75. 5. Recent history of gastric ulcer, per patient due to naproxen that she took for chest pain. 6. x2. 7. Hernia repair. 8. Hysterectomy. 9. Right ankle surgery. FAMILY HISTORY: Mother has rectal cancer and arthritis. Father from diabetes. SOCIAL HISTORY: The patient lives with her , who is sitting by the bedside. She denies any history of alcohol, tobacco, or illicit drug use. ALLERGIES: No known drug allergies. REVIEW OF SYSTEMS: A 10-point review of systems was conducted, and the pertinent is listed within the HPI, otherwise noncontributory. PHYSICAL EXAMINATION: Vital Signs: Temperature 97.2, blood pressure 105/59, pulse 91, respiratory rate 12, oxygen saturation 99% on nasal cannula at 5 L. General: This is a 63-year- old female. She is lying in bed without any acute distress noted. Her is sitting by the bedside. HEENT: Atraumatic. Trachea midline. Mucosa pink and moist. Respiratory: diminished breathing sounds bibasilarly, otherwise clear to auscultation. Cardiovascular: Regular rate and rhythm without murmur noted. Gastrointestinal: Nontender. Normoactive bowel sounds in all 4 quadrants. Soft, obese. The patient complains of constipation at this time. Extremities: No pedal edema. No clubbing. No cyanosis. Neurologic: Alert and oriented x3. Able to follow commands. Speech is fluent. LABORATORY DATA: White blood cells 6.81, hemoglobin 9.4, hematocrit 33.6, platelets 321,000. Sodium 146, potassium 3.8, chloride 92, carbon dioxide 42, BUN 17, creatinine 0.7, glucose 94. ABG: pH 7.45, pCO2 of 75, pO2 of 86, HCO3 of 53.3, base excess 29.0. ASSESSMENT AND PLAN: This is a 63-year-old female with a medical history of hypertension, diabetes, hyperlipidemia, morbid obesity, and recent gastric ulcer. She has been admitted since March 01, 2018, with acute hypoxemic respiratory failure and congestive heart failure exacerbation. Later she was found hypercapnic, too. 1. Acute hypoxemic respiratory failure secondary to pulmonary edema and CHF exacerbation. Patient is currently on NC at 5L. She still has SOB with any activities.We agree to put the patient on BiPAP at bedtime and as needed; continue diuretics, bronchodilator and supplemental oxygen; check ABG routinely and CXR if indicated. Dr. Lo, the foil stamp operator, is on board. 2. Suspected chronic hypercapnic respiratory failure secondary to obstructive sleep apnea or obesity hypoventilation syndrome. Patient is morbidly obese. She has loud snoring and gasping for air during sleep. We will follow up with patient after discharge to have a sleep study. Currently, we agree to continue BiPAP therapy at bedtime and as needed with oxygen per protocol. We will check ABG routinely. 2. Acute on chronic congestive heart failure with preserved ejection fraction. Again, Dr. Lo, the foil stamp operator, is on board. 3. Pulmonary hypertension noted on echocardiogram, likely secondary to congestive heart failure and obesity hypoventilation syndrome. 4. Suspected obstructive sleep apnea and obesity hypoventilation syndrome. We will follow up with patient after discharge to have a sleep study. 5. Continue GI and DVT prophylaxis. Thank you for the courtesy of this consult. Dictated by KARLIE Landon for Julio Vila MD cc: KARLIE Landon MD [facility]
[2018-03-06 05:30] LABS: ALLEN TEST YES; BE 25.1 mmoll (-3.0-3.0); BLOOD TYPE ARTERIAL; HCO3-(ACT) 44.4 mmoll (20.0-26.0); METHB 0.7 % (0.0-1.5); O2(CT) 14.5 mL/dL (15.0-23.0); O2HB 92.6 % (95.0-99.0); PO2(98.6) 75 mmHg (60-100); SAMPLE BLOOD; SAO2 95.1 % (95.0-100.0); THB 11.1 g/dL (11.5-17.4); pH(98.6) 7.38 (7.35-7.45)
[2018-03-06 05:37] LABS: MODALITY BI PAP
[2018-03-06 05:38] LABS: PCO2(98.6) 93 mmHg (35-45)
[2018-03-06 07:39] LABS: AGAP 12; ALBUMIN 3.2 g/dL (3.5-5.0); ALKALINE PHOSPHATASE 54 U/L (32-104); BUN 14 mg/dL (8-22); CALCIUM 8.9 mg/dL (8.8-10.2); CHLORIDE 91 mmol/L (98-107); COSMO 284; CREATININE 0.6 mg/dL (0.5-0.9); ESTIMATED GFR > 60; GLUCOSE 100 mg/dL (70-104); GOT 34 U/L (10-30); GPT 66 U/L (10-36); SODIUM 142 mmol/L (136-145); TCO2 39 mmol/L (25-35); TOTAL BILIRUBIN 0.66 mg/dL (0.20-1.00); TOTAL PROTEIN 6.3 g/dL (6.3-8.3)
[2018-03-06] MEDS: LASIX IV SCH (08:43)
[2018-03-06] MEDS: ASPIRIN PO SCH (08:43)
[2018-03-06] MEDS: LOPRESSOR PO SCH ×2 (08:43→21:43)
[2018-03-06] MEDS: ICAR-C PO SCH ×2 (08:43→21:44)
[2018-03-06] MEDS: COZAAR PO SCH (08:43)
[2018-03-06] MEDS: LOVENOX SUBQ SCH (08:43)
[2018-03-06] MEDS: VENOFER 200 MG in NS 100 ML IV SCH (08:43)
[2018-03-06] MEDS: COLACE PO SCH ×2 (08:43→21:44)
[2018-03-06 10:10] LABS: ALLEN TEST YES; BE 29.7 mmoll (-3.0-3.0); BLOOD TYPE ARTERIAL; HCO3-(ACT) 48.1 mmoll (20.0-26.0); METHB 0.8 % (0.0-1.5); O2(CT) 13.1 mL/dL (15.0-23.0); O2HB 95.5 % (95.0-99.0); PO2(98.6) 116 mmHg (60-100); SAMPLE BLOOD; THB 9.6 g/dL (11.5-17.4); pH(98.6) 7.51 (7.35-7.45)
[2018-03-06 10:11] LABS: MODALITY BI PAP
[2018-03-06 10:12] LABS: PCO2(98.6) 71 mmHg (35-45)
--- NOTE | 2018-03-06 13:37 | Diag Imaging Result Doc PS360 ---
EXAM: CHEST-2 VIEWS HISTORY: hypoxia TECHNIQUE: Chest two views COMPARISON: 03/03/2018 FINDINGS: Improved inspiratory effort. Decreased pulmonary edema. Cardiomegaly remains. No pleural effusions. No consolidation. IMPRESSION: Interval improvement Electronically signed by Jamie Alonso 03/06/2018 1:35 PM
[2018-03-06] MEDS: PROTONIX IV SCH (15:29)
--- NOTE | 2018-03-06 15:29 | PROGRESS NOTE ---
DATE: 03/06/2018 SUBJECTIVE: Today Ms. Rae refers to be doing a lot better. She was sitting up eating her scrambled legs early in the morning. She was on nasal cannula. OBJECTIVE: Vital Signs: Blood pressure is 115/88, pulse is 83, respiration is 14, temperature is 97.7. General: Ms. Rae is a 63-year-old female. She was sitting up at the edge of the bed eating. She was not in any distress. HEENT: Mucosa was pink and moist. Anicteric. Acyanotic. Neck: Supple. Chest: Air entry was bilaterally reduced, but there were no crackles or rhonchi. Cardiovascular: Regular rate and rhythm. No murmurs, no rubs, no gallops. Abdomen: Soft, nontender. Bowel sounds present. There is an old infraumbilical surgical scar. Extremities: No pedal edema. Central Nervous System: Patient was awake, alert and oriented. There is no focal neurological deficit. LABORATORY DATA: Sodium is 142, potassium is 4.0, chloride 91, bicarb is down to 39. ABG: PH 7.51, pCO2 is 71, PaO2 of 48.1. CURRENT MEDICATIONS: Have also been reviewed. ASSESSMENT: 1. Acute hypoxemic respiratory failure on presentation secondary to pulmonary edema. This has significantly improved with diuretic therapy. Follow-up chest x-ray shows improvement. 2. Acute on chronic congestive heart failure with preserved ejection fraction, stable. 3. Left concentric ventricular hypertrophy secondary to hypertensive heart disease. We will continue to control blood pressure. 4. Pulmonary hypertension noted on echocardiogram. 5. Altered mental status secondary to CO2 narcosis, improved with BiPAP therapy. 6. Acute on chronic hypercarbic respiratory failure with suspicion of obesity hypoventilation syndrome noted. 7. Suspected obstructive sleep apnea. The patient advised to follow up with Sleep team. 8. Iron deficiency anemia. Replace with iron infusions. 9. Transaminitis secondary to steatohepatitis. So, in general, I feel Ms. Rae is now doing a lot better. The congestive symptoms have remarkably improved. The patient has been seen by Cardiology and Pulmonology. Unfortunately, her blood gases this morning were ridiculously high. This has been repeated. There is some improvement. We are going to recheck on this later on this afternoon. Hopefully, tomorrow if she is doing better we can discharge her. cc: Dev Heller MD
[2018-03-06 16:01] LABS: ALLEN TEST YES; BE 28.5 mmoll (-3.0-3.0); BLOOD TYPE ARTERIAL; HCO3-(ACT) 47.1 mmoll (20.0-26.0); O2(CT) 11.9 mL/dL (15.0-23.0); O2HB 91.7 % (95.0-99.0); PO2(98.6) 65 mmHg (60-100); SAMPLE BLOOD; SAO2 94.9 % (95.0-100.0); THB 9.2 g/dL (11.5-17.4); pH(98.6) 7.49 (7.35-7.45)
[2018-03-06 16:02] LABS: MODALITY CANNULA; PCO2(98.6) 73 mmHg (35-45)
[2018-03-07 05:34] LABS: ALLEN TEST YES; BE 21.7 mmoll (-3.0-3.0); BLOOD TYPE ARTERIAL; HCO3-(ACT) 41.8 mmoll (20.0-26.0); O2HB 95.2 % (95.0-99.0); PO2(98.6) 122 mmHg (60-100); SAMPLE BLOOD; SAO2 97.9 % (95.0-100.0); THB 14.8 g/dL (11.5-17.4); pH(98.6) 7.46 (7.35-7.45)
[2018-03-07 05:36] LABS: MODALITY BI PAP
[2018-03-07 05:37] LABS: PCO2(98.6) 71 mmHg (35-45)
--- NOTE | 2018-03-07 09:11 | Diag Imaging Result Doc PS360 ---
EXAM: HIDA SCAN W/ EJECTION FRACTION HISTORY: r/o biliary dyskinesia TECHNIQUE: Nuclear medicine HIDA scan COMPARISON: None. FINDINGS: 5.4 mCi Choletec administered. There is normal uptake in the liver. There is normal filling of the gallbladder. Ensure was given to determine the gallbladder ejection fraction. This is calculated to be 98% at 60 minutes. This is well above the normal range. IMPRESSION: Normal HIDA scan with a normal gallbladder ejection fraction. Electronically signed by Jamie Alonso 03/07/2018 9:08 AM
[2018-03-07] MEDS: ASPIRIN PO SCH (09:38)
[2018-03-07] MEDS: LASIX IV SCH (09:38)
[2018-03-07] MEDS: LOPRESSOR PO SCH ×2 (09:38→21:23)
[2018-03-07] MEDS: ICAR-C PO SCH ×2 (09:38→21:23)
[2018-03-07] MEDS: LOVENOX SUBQ SCH (09:38)
[2018-03-07] MEDS: COLACE PO SCH ×2 (09:38→21:23)
[2018-03-07] MEDS: VENOFER 200 MG in NS 100 ML IV SCH (09:39)
[2018-03-07] MEDS: COZAAR PO SCH (09:43)
[2018-03-07 11:38] LABS: BASO# 0.01 X1000 (0.0-0.2); BASO% 0.2 % (0.0-0.8); EOS# 0.21 X1000 (0.0-0.7); EOS% 3.4 % (0.0-10.0); HEMATOCRIT 32.8 % (37.0-47.0); HEMOGLOBIN 9.4 g/dL (12.0-16.0); IMM GRAN# 0.02 X1000 (0.0-0.04); IMM GRAN% 0.3 % (0.0-0.5); LYMPH# 1.34 X1000 (1.2-3.4); LYMPH% 21.8 % (20.5-51.1); MCH 25.7 PG (27-31); MCHC 28.7 g/dL (33-37); MCV 89.6 FL (81-99); MONO# 0.42 X1000 (0.11-0.59); MONO% 6.8 % (1.7-9.3); MPV 9.7 FL (7.4-10.4); NEUT# 4.15 X1000 (1.4-6.5); NEUT% 67.5 % (42.2-75.2); PLT 262 X1000 (130-400); RBC 3.66 XMIL (4.2-5.4); RDW 16.8 % (11.5-14.5); WBC 6.15 X1000 (4.8-10.8)
[2018-03-07 12:36] LABS: AGAP 9; ALBUMIN 3.3 g/dL (3.5-5.0); BUN 17 mg/dL (8-22); CALCIUM 9.3 mg/dL (8.8-10.2); CHLORIDE 90 mmol/L (98-107); COSMO 287; CREATININE 0.7 mg/dL (0.5-0.9); ESTIMATED GFR > 60; GLUCOSE 209 mg/dL (70-104); PHOSPHORUS 2.5 mg/dL (2.7-4.5); POTASSIUM 3.6 mmol/L (3.5-5.1); SODIUM 140 mmol/L (136-145); TCO2 41 mmol/L (25-35)
[2018-03-07] MEDS: PROTONIX IV SCH (14:26)
--- NOTE | 2018-03-07 20:00 | PROGRESS NOTE ---
DATE: 03/07/2018 SUBJECTIVE: This morning Ms. Rae referred to be doing a whole lot better. She was sitting up at the bedside. was also at the bedside at the time of the encounter. She denies any complaints. OBJECTIVE: Vital Signs: Blood pressure is 114/68, pulse is 93, respiration is 18, temperature 98.2. General: Ms. Rae is a 63-year-old female. She is in bed. She is not in any cardiopulmonary distress. HEENT: Mucosa is pink and moist. Anicteric. Acyanotic. Neck: Supple. Is short and thick, but there is no JVD. No carotid bruit. There is no thyromegaly. Chest: Good air entry bilaterally. There were no crepitations, no rhonchi. Cardiovascular: Regular rate and rhythm. No murmurs, no rubs, no gallops. Gastrointestinal: Abdomen was soft, distended, but nontender. There is an old infraumbilical surgical scar. Extremities: No pedal edema. Distal pulses are present. No cyanosis. Central Nervous System: Patient is awake, alert, oriented. There is no focal neurological deficit. LABORATORY DATA: WBC is 6.15, hemoglobin is 9.4, platelet count of 262,000. PH is 7.46, pCO2 is 71, PaO2 is 125. This was on BiPAP. Sodium is 140, potassium is 3.6, chloride 91, bicarb is 41, glucose was 209. CURRENT MEDICATIONS: Include: 1. Aspirin 81 mg daily. 2. Colace 100 mg b.i.d. 3. Lovenox 40 mg q.24. 4. Lasix 40 mg IV daily. 5. Losartan 50 mg daily. 6. Metoprolol 12.5 b.i.d. 7. Pantoprazole. 8. Iron infusion, which has finished. ASSESSMENT: 1. Acute hypoxemic respiratory failure on presentation secondary to pulmonary edema. This is significantly improved with diuretic therapy. There are no more congestive symptoms. I am going to change the IV Lasix to p.o. 2. Acute on chronic congestive heart failure with preserved ejection fraction, stable. 3. Left ventricular hypertrophy secondary to hypertensive heart disease. We will continue to control blood pressure. 4. Pulmonary hypertension noted on echocardiogram. 5. Altered mental status secondary to CO2 narcosis, improved with BiPAP therapy. 6. Acute on chronic hypercarbic respiratory failure with suspicion of obesity hypoventilation syndrome. The patient's pCO2 is down to 71. I think this is where she normally stays. She has a well compensated metabolic alkalosis as a result of the chronic respiratory acidosis. 7. Suspected obstructive sleep apnea. Patient has been advised to follow with the Sleep Team and do schedule an outpatient sleep study and treatment accordingly. 8. Iron deficiency anemia. Patient has been replaced with iron infusion. 9. Transaminitis likely due to steatohepatitis, noted. PLAN: So, in general, Ms. Rae is fairly stable. Her blood pressure is better controlled. Congestive symptoms have improved. She is still in the 70s for pCO2, but I think that is probably where she lives since she does have elevated bicarb which is a compensation of the chronic respiratory acidosis. I have spoken with Dr. Vila, the Pulmonary Medicine subspecialist on board. He believes that we still need to get the pCO2 a little lower before we send her out. Otherwise, there is a high likelihood that she is going to come back. We will repeat this tomorrow morning and then go from there. We will also get the patient evaluated for home oxygen. cc: Dev Heller MD MTDD
[2018-03-07] MEDS: LASIX PO SCH (21:23)
[2018-03-08 05:16] LABS: ALLEN TEST YES; BE 19.7 mmoll (-3.0-3.0); BLOOD TYPE ARTERIAL; HCO3-(ACT) 40.2 mmoll (20.0-26.0); METHB 0.7 % (0.0-1.5); O2(CT) 18.7 mL/dL (15.0-23.0); O2HB 94.7 % (95.0-99.0); PO2(98.6) 102 mmHg (60-100); SAMPLE BLOOD; SAO2 97.5 % (95.0-100.0); pH(98.6) 7.43 (7.35-7.45)
[2018-03-08 05:19] LABS: MODALITY CANNULA
[2018-03-08 05:20] LABS: PCO2(98.6) 73 mmHg (35-45)
[2018-03-08 08:31] LABS: ESTIMATED GFR > 60
[2018-03-08 08:36] LABS: AGAP 7; ALBUMIN 3.5 g/dL (3.5-5.0); BUN 14 mg/dL (8-22); CALCIUM 8.8 mg/dL (8.8-10.2); CHLORIDE 93 mmol/L (98-107); COSMO 286; CREATININE 0.7 mg/dL (0.5-0.9); GLUCOSE 111 mg/dL (70-104); PHOSPHORUS 3.2 mg/dL (2.7-4.5); POTASSIUM 3.7 mmol/L (3.5-5.1); SODIUM 143 mmol/L (136-145); TCO2 43 mmol/L (25-35)
[2018-03-08] MEDS: LOVENOX SUBQ SCH (09:27)
[2018-03-08] MEDS: ICAR-C PO SCH ×2 (09:27→20:02)
[2018-03-08] MEDS: COZAAR PO SCH (09:28)
[2018-03-08] MEDS: ASPIRIN PO SCH (09:28)
[2018-03-08] MEDS: LOPRESSOR PO SCH ×2 (09:28→20:02)
[2018-03-08] MEDS: LASIX PO SCH ×2 (09:28→20:02)
[2018-03-08] MEDS: COLACE PO SCH ×2 (09:28→20:02)
[2018-03-08] MEDS: SODIUM CHLORIDE 0.9% INJ SCH (14:38)
[2018-03-08] MEDS: PROTONIX IV SCH (14:38)
--- NOTE | 2018-03-08 19:55 | PROGRESS NOTE ---
DATE: 03/08/2018 Today Ms. Rae refers to be doing a lot better. She was actually sitting up at the edge of the bed. There was no family member at the time of the encounter. OBJECTIVE: Vital signs: Blood pressure is 131/83, pulse is 100, respirations 20, temperature is 97.9 degrees. General: Ms. Rae is a 63-year-old, female. She was at the edge of the bed was not in any cardiopulmonary distress. HEENT: Mucosa is pink and moist. Anicteric. Acyanotic. Neck: Supple. Chest: Air entry is bilaterally reduced, but there was no crackles no rhonchi. Cardiovascular: Regular rate and rhythm. No murmurs, no rubs, no gallops. Abdomen: Was soft, distended, but nontender. There is an old infraumbilical surgical scar. Extremities: No pedal edema. Distal pulses are present FAVOR MAKER: Patient is awake, alert, oriented. There is no focal neurological deficit. LABORATORY DATA: PH is 7.43, pCO2 73, PO2 of 103. Chemistry is also reviewed unremarkable. CURRENT MEDICATIONS: Have also been reviewed. Lasix has been switched to p.o. ASSESSMENT: 1. Acute hypoxemic respiratory failure on presentation secondary to pulmonary edema. This is improved on diuretic therapy. Patient is currently down to 4 L of nasal cannula O2 to saturate adequately. 2. Acute on chronic congestive heart failure with preserved ejection fraction, stable. 3. Left ventricular hypertrophy secondary to hypertensive heart disease noted. 4. Pulmonary hypertension noted on echo. 5. Altered mental status secondary to CO2 narcosis, improved. 6. Acute on chronic hypercarbic respiratory failure. The patient continues to be mildly hypercarbic. I think the 70s is where she normally stays. We would wait for Pulmonary Medicine to evaluate her today. 7. Chronic respiratory acidosis with metabolic alkalosis compensation noted. 8. Suspected obstructive sleep apnea patient will follow up with Dr. Vila on outpatient base. 9. Iron deficiency anemia. Patient has been has been replaced with iron infusions. 10. Transaminitis likely due to steatohepatitis noted. PLAN: So, in general, I think Ms. Rae is fairly stable. CO2 is still in the low 70s but as I said, I believe this is where she lives. I have discussed this case with Dr. Vila. He still wants to observe the patient 1 more day, repeat a ABG and hopefully get her home tomorrow. cc: Dev Heller MD
[2018-03-09 05:31] LABS: ALLEN TEST YES; BLOOD TYPE ARTERIAL; HCO3-(ACT) 40.5 mmoll (20.0-26.0); METHB 0.8 % (0.0-1.5); O2HB 95.9 % (95.0-99.0); PO2(98.6) 114 mmHg (60-100); SAMPLE BLOOD; SAO2 98.7 % (95.0-100.0); THB 9.5 g/dL (11.5-17.4); pH(98.6) 7.42 (7.35-7.45)
[2018-03-09 05:34] LABS: MODALITY BI PAP; PCO2(98.6) 73 mmHg (35-45)
[2018-03-09] MEDS: LOPRESSOR PO SCH (10:02)
[2018-03-09] MEDS: COLACE PO SCH (10:02)
[2018-03-09] MEDS: LASIX PO SCH (10:03)
[2018-03-09] MEDS: ICAR-C PO SCH (10:03)
[2018-03-09] MEDS: LOVENOX SUBQ SCH (10:03)
[2018-03-09] MEDS: COZAAR PO SCH (10:03)
[2018-03-09] MEDS: ASPIRIN PO SCH (10:03)
[2018-03-09 14:52] VITALS: BP 119/71
--- NOTE | 2018-03-10 06:06 | DISCHARGE SUMMARY ---
ADMISSION DATE: 03/01/2018 DISCHARGE DATE: 03/09/2018 LENGTH OF STAY: 8 days. DISPOSITION: Home. FOLLOWUP: 1. Dr. Vila. 2. Dr. Gonsalves. CONSULTATIONS DURING THIS ADMISSION: 1. Pulmonary Medicine was consulted. Patient was seen by Dr. Vila. 2. Cardiology was also consulted. Patient was seen by Dr. Gonsalves. ADMISSION DIAGNOSES: 1. Acute congestive heart failure. 2. Transaminitis. 3. Anemia. 4. Diabetes mellitus. 5. History of gastric ulcer disease. DIAGNOSES AT THE TIME OF DISCHARGE: 1. Acute hypoxemic respiratory failure secondary to pulmonary edema. 2. Acute on chronic congestive heart failure with preserved ejection fraction. 3. Left ventricular concentric hypertrophy secondary to hypertensive heart disease. 4. Pulmonary hypertension noted on echocardiogram. 5. Acute on chronic hypercarbic respiratory failure. This was improved with BiPAP therapy. Patient's pCO2 stabilized around the 70s. 6. Chronic respiratory acidosis with metabolic alkalosis compensation. 7. Suspected obstructive sleep apnea. The patient is advised to follow up with Dr. Vila for outpatient sleep studies. 8. Obesity-hypoventilation syndrome. 9. Iron deficiency anemia. The patient was given iron infusions. 10. Transaminitis secondary to congestive hepatopathy on background of steatohepatitis. DISCHARGE MEDICATIONS: 1. Metformin 500 p.o. daily. 2. Januvia 50 mg daily. 3. Nifedipine 10 mg daily. 4. Furosemide 20 mg b.i.d. 5. Iron 1 tablet b.i.d. 6. Losartan 50 mg daily. 7. Metoprolol 12.5 b.i.d. 8. Colace 100 mg b.i.d. PRESENTING COMPLAINT: Bilateral lower extremity edema and shortness of breath. HISTORY OF PRESENTING COMPLAINT: Ms. Rae is a 63-year-old female, history of hypertension, diabetes, dyslipidemia, who presented to the emergency department because of 2- week history of increasing shortness of breath and lower extremity edema. Patient was evaluated, was found to have O2 saturations in the low 80s, was subsequently admitted for congestive heart failure for further medical care. The patient was initially admitted to [facility], was adequately diuresed, swelling and congestive symptoms improved. Cardiology was consulted. HOSPITAL COURSE: The patient did pretty well during the hospital course. She was seen by Cardiology. Echocardiogram was done which showed ejection fraction was 65, but did have moderate concentric left ventricular hypertrophy with pulmonary artery systolic pressure of 60 mmHg suggestive of moderate pulmonary hypertension. The patient was also seen by Pulmonary Medicine under the suspicion of possible obstructive sleep apnea and obesity-hypoventilation syndrome. During the hospital course, at some point, patient became very confused. ABGs were done which revealed her pCO2 was 137. She was immediately put back on BiPAP, and this improved to 75, and it kind of stabilized around 73 for about 3 or 4 days in the row. The patient's mentation improved. Her shortness of breath and everything, and all her congestive symptoms got better. At the time of the discharge, she did qualify for oxygen therapy, which I understand the daughter paid because the patient did not have any insurance. The patient is advised to follow up with Dr. Vila for outpatient sleep studies since we think that most of her symptoms are being driven mainly by the obstructive sleep apnea and obesity hypoventilation syndrome. At the time of the discharge, there was not any pending labs. HER VITALS: Blood pressure is 119/71, pulse is 89, respirations 20, temperature is degrees 97.9. PATIENT'S PHYSICAL EXAM: Fairly stable and unremarkable except for BMI of 46.8. Other discharge instructions were discussed with her. I was able to update her daughter via the phone every single day about her mother's progress. On multiple occasions, I was able also able to meet the , and I was able to update him as well. TIME SPENT FOR DISCHARGE: 37 minutes. cc: MD Remington Jack MD Mamoun I. Najjar, MD
== END 2018-03-09 18:32 | disposition home or self-care (01) | DRG 291 ==
LOC: ED 12:03 → EDIPHOLD 17:11 → SUATTDRO 17:11 → 3N 03-02 17:56
PROVIDERS: ATTEND Internal Medicine
CPT/HCPCS: 51702; 70450; 71010; 71020; 71045; 71046; 76705; 78227; 78452; 80048; 80053; 80069; 80074; 80076; 81001; 82140; 82270; 82550; 82553; 82607; 82728; 82746; 82805; 82948; 83036; 83540; 83550; 83735; 83880; 83970; 84100; 84436; 84443; 84484; 85025; 85730; 86038; 86039; 93005; 93017; 93306; 94660; 94761; 94762; 96374; 96375; 96376; 97116; 97162; 97530; 99285; A9270; A9500; A9537; C8929; C9113; J1650; J1756; J1940; J2785; Q9957; S0164; XXXXX